=== PATIENT | male | born 1950 | race Hispanic/Latino ===

== ENCOUNTER → 2018-12-05 | Outpatient (CLI) | payer MEDICARE | END | disposition home or self-care (01) | LOC: RAH 12:34 | PROVIDERS: ATTEND Family Medicine | DX: G31.9 Degenerative disease of nervous system, unspecified (principal) | CPT/HCPCS: 70450 ==

== ENCOUNTER → 2019-06-23 | Outpatient (CLI) | payer MEDICARE | END | disposition home or self-care (01) | LOC: SHCH 07:54 | PROVIDERS: ATTEND Internal Medicine Cardiovascular Disease | DX: I10 Essential (primary) hypertension (principal) | CPT/HCPCS: 93306; 93356 ==

== ENCOUNTER → 2019-06-26 | Outpatient (CLI) | payer MEDICARE | END | disposition home or self-care (01) | LOC: SHCH 08:56 | PROVIDERS: ATTEND Internal Medicine Cardiovascular Disease | DX: I25.10 Atherosclerotic heart disease of native coronary artery without angina pectoris (principal) | CPT/HCPCS: 93880 ==

== ENCOUNTER 2019-08-27 21:24 | Inpatient (IN) | payer OTHER, MEDICARE ==
[~2019-08-27] VITALS: Ht 157.5 cm; Wt 83.2 kg
[2019-08-27] MEDS ORDERED: DEXAMETHASONE SOD PHOSPHATE 4 MG/ML 1ML VIAL ONE (22:29)
[2019-08-27] MEDS ORDERED: ENOXAPARIN SODIUM 80 MG/0.8 ML SQ ONE (22:29)
[2019-08-28] MEDS ORDERED: ROCURONIUM BROMIDE 10MG/1ML 5ML VL IV ONE (00:29)
[2019-08-28] MEDS ORDERED: ETOMIDATE 2 MG/ML 10 ML VIAL IVP ONE (00:29)
[2019-08-28] MEDS ORDERED: METHYLPREDNISOLONE SOD SUCC 40MG/ML 1ML ONE ×3 (01:22→22:13)
[2019-08-28] MEDS ORDERED: FAMOTIDINE 20MG TAB 20 MG TAB ONE (01:23)
[2019-08-28] MEDS ORDERED: AZITHROMYCIN 500MG+NS 250ML 250 ML IV ONE (01:23)
[2019-08-28] MEDS ORDERED: CEFTRIAXONE SODIUM 1 GM ONE ×2 (01:23→08:00)
[2019-08-28 02:09] LABS: BILIRUBIN,TOTAL 1.3 mg/dL (0.2-1.0); CREATININE 0.8 mg/dL (0.5-1.5); POTASSIUM 4.4 mmol/L (3.5-5.1); TOTAL PROTEIN, SERUM 6.5 g/dL (6.0-8.3)
[2019-08-28 02:12] LABS: BASOPHILS % (AUTO) 0.2 % (0.0-5.0); LYMPHOCYTES % (AUTO) 4.9 % (21.0-51.0); MEAN CORPUSCULAR HEMOGLOBIN 29.4 pg (27.0-33.0); MEAN CORPUSCULAR HGB CONC 34.4 g/dL (32.0-36.0); MEAN CORPUSCULAR VOLUME 85.3 fL (79-99); MONOCYTES % (AUTO) 9.6 % (3.0-13.0); NEUTROPHILS % (AUTO) 84.7 % (40.0-77.0); PLATELET COUNT (AUTO) 149 K/uL (130-400); RED BLOOD CELL COUNT(AUTO) 5.86 MIL/uL (4.50-6.20); WHITE BLOOD COUNT (AUTO) 5.3 K/uL (4.8-10.8)
[2019-08-28] MEDS ORDERED: ALBUTEROL INHALER 90MCG/INH IH ONE (03:11)
[2019-08-28] MEDS ORDERED: ONDANSETRON HCL 4 MG/2 ML VIAL IVP PRN (03:15)
[2019-08-28] MEDS ORDERED: ACETAMINOPHEN 325 MG TAB PO PRN (03:15)
[2019-08-28] MEDS ORDERED: ALBUTEROL INHALER 90MCG/INH IH PRN (03:15)
[2019-08-28] MEDS ORDERED: GLUCAGON 1MG KIT 1 MG ML IM PRN (03:15)
[2019-08-28] MEDS ORDERED: DEXTROSE 50%-WATER 50 ML DISP.SYRIN IV PRN (03:15)
[2019-08-28 03:19] LABS: CREATINE KINASE, TOTAL 48 U/L (21-232); LACTATE DEHYDROGENASE 360 U/L (81-234); MYOGLOBIN 31 ng/mL (10-92); TRIGLYCERIDES 108 mg/dL (30-200)
[2019-08-28] MEDS ORDERED: IOHEXOL 350 MG/ML 100ML INFUS..BTL IV ONE (04:09)
[2019-08-28] MEDS: ALBUTEROL INHALER 90MCG/INH IH SCH ×5 (06:00→22:00)
[2019-08-28] MEDS: METHYLPREDNISOLONE SOD SUCC 40MG/ML 1ML IVP SCH ×3 (06:00→22:00)
[2019-08-28] MEDS: SODIUM CHLORIDE 0.9% 1000ML 1,000 ML IV SCH ×2 (07:24→17:24)
[2019-08-28] MEDS: INSULIN R PO SS1 SQ SCH ×4 (07:30→21:00)
[2019-08-28] MEDS ORDERED: ENOXAPARIN SODIUM 80 MG/0.8 ML SQ ONE ×2 (07:59→22:13)
[2019-08-28] MEDS ORDERED: FAMOTIDINE/PF 20 MG/2 ML VIAL IV ONE ×2 (08:00→22:14)
[2019-08-28 08:19] LABS: HEMATOCRIT 46.6 % (42-54); LYMPHOCYTES % (AUTO) 6.7 % (21.0-51.0); MEAN CORPUSCULAR HEMOGLOBIN 29.6 pg (27.0-33.0); MEAN CORPUSCULAR HGB CONC 34.3 g/dL (32.0-36.0); MEAN CORPUSCULAR VOLUME 86.1 fL (79-99); MONOCYTES % (AUTO) 3.4 % (3.0-13.0); NEUTROPHILS % (AUTO) 89.3 % (40.0-77.0); PLATELET COUNT (AUTO) 155 K/uL (130-400); RED BLOOD CELL COUNT(AUTO) 5.41 MIL/uL (4.50-6.20); WHITE BLOOD COUNT (AUTO) 3.3 K/uL (4.8-10.8)
[2019-08-28 08:31] LABS: INR 0.94 (0.85-1.15); PROTHROMBIN TIME 10.2 SEC (9.6-11.6)
[2019-08-28 08:43] LABS: ALANINE AMINOTRANSFERASE 33 U/L (12-78); ALBUMIN 2.4 g/dL (3.5-5.0); ASPARTATE AMINOTRANSFERASE 42 U/L (10-37); BILIRUBIN,TOTAL 0.9 mg/dL (0.2-1.0); CARBON DIOXIDE 28 mmol/L (21-32); CHLORIDE 100 mmol/L (101-111); CREATINE KINASE, TOTAL 54 U/L (21-232); CREATININE 0.8 mg/dL (0.5-1.5); GLOMERULAR FILTR. RATE CALC 102 mL/min (>60); GLUCOSE,RANDOM 283 mg/dL (70-105); LACTATE DEHYDROGENASE 320 U/L (81-234); MYOGLOBIN 42 ng/mL (10-92); SODIUM SERUM 136 mmol/L (136-145); TOTAL PROTEIN, SERUM 6.7 g/dL (6.0-8.3); TRIGLYCERIDES 85 mg/dL (30-200); TROPONIN I < 0.04 ng/mL (0.00-0.06); UREA NITROGEN, BLOOD 15 mg/dL (7-18)
[2019-08-28] MEDS: FAMOTIDINE 20MG TAB 20 MG TAB PO SCH ×2 (09:00→21:00)
[2019-08-28] MEDS ORDERED: ENOXAPARIN SODIUM 40 MG/0.4 ML SYRINGE SQ SCH (09:00)
[2019-08-28] MEDS: ENOXAPARIN SODIUM 80 MG/0.8 ML SQ SCH ×2 (09:00→21:00)
[2019-08-28 09:11] LABS: FIBRINOGEN 688 mg/dL (180-350)
[2019-08-28 09:12] LABS: D-DIMER 2252 ng/mL (0-500)
--- NOTE | 2019-08-28 12:44 | NUR ---
family contact information, Kerline Padilla .
[2019-08-28] MEDS ORDERED: INSULIN HUMULIN R 100 UNIT/ML 3ML ONE ×2 (14:16→22:14)
[2019-08-28] MEDS: INSULIN GLARGINE 100 UNITS/ML 10 ML VIAL SQ SCH (21:00)
[2019-08-29] MEDS: AZITHROMYCIN 500MG+NS 250ML 250 ML IV SCH (01:00)
[2019-08-29] MEDS: CEFTRIAXONE SODIUM 1 GM IVP SCH (01:00)
[2019-08-29] MEDS ORDERED: CEFTRIAXONE SODIUM 1 GM ONE (01:17)
[2019-08-29] MEDS ORDERED: AZITHROMYCIN 500MG+NS 250ML 250 ML IV ONE (01:17)
[2019-08-29] MEDS: ALBUTEROL INHALER 90MCG/INH IH SCH ×6 (02:00→22:00)
[2019-08-29] MEDS: SODIUM CHLORIDE 0.9% 1000ML 1,000 ML IV SCH ×3 (03:24→23:24)
[2019-08-29] MEDS: METHYLPREDNISOLONE SOD SUCC 40MG/ML 1ML IVP SCH ×3 (06:00→22:00)
[2019-08-29 06:35] LABS: CREATININE 0.7 mg/dL (0.5-1.5); POTASSIUM 4.2 mmol/L (3.5-5.1)
[2019-08-29 06:44] LABS: HEMATOCRIT 45.9 % (42-54); MEAN CORPUSCULAR HEMOGLOBIN 29.2 pg (27.0-33.0); MEAN CORPUSCULAR HGB CONC 34.2 g/dL (32.0-36.0); MEAN CORPUSCULAR VOLUME 85.3 fL (79-99); RED BLOOD CELL COUNT(AUTO) 5.38 MIL/uL (4.50-6.20); WHITE BLOOD COUNT (AUTO) 10.4 K/uL (4.8-10.8)
[2019-08-29] MEDS: INSULIN R PO SS1 SQ SCH ×4 (07:30→21:00)
[2019-08-29] MEDS ORDERED: ENOXAPARIN SODIUM 80 MG/0.8 ML SQ ONE ×2 (08:31→19:36)
[2019-08-29] MEDS ORDERED: METHYLPREDNISOLONE SOD SUCC 40MG/ML 1ML ONE ×2 (08:32→19:36)
[2019-08-29] MEDS ORDERED: FAMOTIDINE/PF 20 MG/2 ML VIAL IV ONE ×2 (08:32→19:37)
[2019-08-29] MEDS: ENOXAPARIN SODIUM 80 MG/0.8 ML SQ SCH ×2 (09:00→21:00)
[2019-08-29] MEDS: FAMOTIDINE 20MG TAB 20 MG TAB PO SCH ×2 (09:00→21:00)
[2019-08-29] MEDS ORDERED: INSULIN HUMULIN R 100 UNIT/ML 3ML ONE (13:12)
--- NOTE | 2019-08-29 14:35 | NUR ---
CHART CHECK COMPLETED. Pt IS A 69 Y.O. MALE ADMITTED SECONDARY TO COVID PNEUMONIA, HYPOXIA. Pt HAS A PAST MEDICAL HISTORY SIGNIFICANT FOR DM, HTN, PROSTATE ISSUES, CHOLECYSTECTOMY. Pt WITH NO DIET IN PLACE AT THIS TIME. PLEASE REQUEST FORMAL SKILLED SPEECH/SWALLOW EVALUATION IF Pt PRESENTS WITH +S/S OF ASPIRATION SUCH COUGH RESPONSE, WET VOCAL QUALITY OR THROAT CLEAR DURING P.O. Addendum: 08/29/19 at 1437 by ИВАН BAKER, [facility] Amended: Links added.
[2019-08-29] MEDS: INSULIN GLARGINE 100 UNITS/ML 10 ML VIAL SQ SCH (21:00)
[2019-08-30] VITALS (61 sets, daily range): BP systolic 51–211; BP diastolic 31–128
[2019-08-30] MEDS ORDERED: CEFTRIAXONE SODIUM 1 GM ONE (00:03)
[2019-08-30] MEDS ORDERED: AZITHROMYCIN 500MG+NS 250ML 250 ML IV ONE (00:03)
[2019-08-30] MEDS: CEFTRIAXONE SODIUM 1 GM IVP SCH (01:00)
[2019-08-30] MEDS: AZITHROMYCIN 500MG+NS 250ML 250 ML IV SCH (01:00)
[2019-08-30] MEDS: ALBUTEROL INHALER 90MCG/INH IH SCH ×5 (02:00→17:53)
[2019-08-30] MEDS ORDERED: ALBUTEROL INHALER 90MCG/INH IH ONE (02:18)
[2019-08-30] MEDS: METHYLPREDNISOLONE SOD SUCC 40MG/ML 1ML IVP SCH ×2 (06:01→14:14)
[2019-08-30] MEDS: SODIUM CHLORIDE 0.9% 1000ML 1,000 ML IV SCH (06:01)
[2019-08-30] MEDS: INSULIN R PO SS1 SQ SCH ×3 (06:06→17:48)
--- NOTE | 2019-08-30 08:00 | NUR ---
AM SHIFT ASSESSMENT. O2 VIA NRB AT 15L. SATS AT 91% HEAD OF BED UP
[2019-08-30] MEDS ORDERED: PHARMACY COMMUNICATION MISC SCH ×3 (08:45→17:00)
[2019-08-30] MEDS: ENOXAPARIN SODIUM 80 MG/0.8 ML SQ SCH (09:48)
[2019-08-30] MEDS: FAMOTIDINE 20MG TAB 20 MG TAB PO SCH (09:48)
[2019-08-30] MEDS ORDERED: METOPROLOL SUCCINATE 50 MG TAB.SR.24H PO SCH (10:02)
[2019-08-30 10:49] LABS: HEMATOCRIT 46.9 % (42-54); MEAN CORPUSCULAR HEMOGLOBIN 29.3 pg (27.0-33.0); MEAN CORPUSCULAR HGB CONC 34.3 g/dL (32.0-36.0); MEAN CORPUSCULAR VOLUME 85.4 fL (79-99); RED BLOOD CELL COUNT(AUTO) 5.49 MIL/uL (4.50-6.20); WHITE BLOOD COUNT (AUTO) 12.4 K/uL (4.8-10.8)
[2019-08-30 11:10] LABS: ALBUMIN 2.6 g/dL (3.5-5.0); BILIRUBIN,TOTAL 0.9 mg/dL (0.2-1.0); CREATININE 0.8 mg/dL (0.5-1.5); POTASSIUM 3.9 mmol/L (3.5-5.1); TOTAL PROTEIN, SERUM 6.4 g/dL (6.0-8.3)
[2019-08-30] MEDS ORDERED: FUROSEMIDE 10 MG/ML 2ML VIAL IV SCH ×2 (12:15→14:10)
[2019-08-30 12:28] LABS: ABG BASE EXCESS 2.7 mmol/L (-2.0-3.0); ABG HCO3 25.8 mmol/L (21.0-28.0); ABG OXYGEN SATURATION 87.3 % (95.0-99.0); ABG PCO2 35 mmHg (35-48)
--- NOTE | 2019-08-30 12:34 | NUR ---
PLACED ON PRONE POSITION.
--- NOTE | 2019-08-30 12:55 | NUR ---
LASIX 20MG GIVEN NOW. ORDER IN PLACE TO TRANSFER TO ICU, [employer]AC[employer] ENGINEER NOTIFIED.
[2019-08-30] MEDS ORDERED: COMPOUND IV REFRIGERATED 1 EACH IVSOLN MISC PRN (13:45)
[2019-08-30] MEDS ORDERED: REMDESIVIR (EUA) 520 200 MG in SODIUM CHLORIDE 0.9% 250 ML IV ONE (14:00)
--- NOTE | 2019-08-30 14:00 | NUR ---
ORDERS TO TRANSFER PT. TO ICU IN PLACE, REPORT GIVEN TO FRANCESCA MONTANO RN. HE WILL INFORM ME WHEN ROOM IS READY.
--- NOTE | 2019-08-30 14:20 | NUR ---
WALKED IN ROOM TO GIVE SCHEDULED MEDICATIONS AND FOUND PT. ON THE FLOOR, FACE DOWN, HAD PULLED OUT ALL LINES AND WAS HAVING SEVERE RESP DISTRESS. NETO YIP CALLED IMMEDIATELY. PLACED BACK ON BED AND RESUSCITATE MEASURES STARTED IMMEDIATELY.INTUBATED AND TRANSFERRED TO ICU.SEVERAL ATTEMPTS TO CONTACT FAMILY HAVE BEEN AND AND ALL GO TO VOICE MAIL
[2019-08-30 14:54] LABS: BASOPHILS % (AUTO) 0.4 % (0.0-5.0); EOSINOPHILS % (AUTO) 0.7 % (0.0-8.0); HEMATOCRIT 52.3 % (42-54); LYMPHOCYTES % (AUTO) 5.1 % (21.0-51.0); MEAN CORPUSCULAR HEMOGLOBIN 29.8 pg (27.0-33.0); MEAN CORPUSCULAR HGB CONC 32.9 g/dL (32.0-36.0); MEAN CORPUSCULAR VOLUME 90.6 fL (79-99); MONOCYTES % (AUTO) 6.6 % (3.0-13.0); NEUTROPHILS % (AUTO) 84.3 % (40.0-77.0); NUCLEATED RED BLOOD CELLS 0.1 % (0.0-0.19); PLATELET COUNT (AUTO) 247 K/uL (130-400); RED BLOOD CELL COUNT(AUTO) 5.77 MIL/uL (4.50-6.20); RED CELL DISTRIBUTION WIDTH 13.2 % (11.0-15.5); WHITE BLOOD COUNT (AUTO) 15.6 K/uL (4.8-10.8)
[2019-08-30] MEDS ORDERED: MIDAZOLAM 50MG-0.9% NS 50ML 50 ML BAG IV SCH (15:00)
[2019-08-30] MEDS ORDERED: LINEZOLID 600 MG/ISO-OSM 300 ML IV SCH (15:00)
[2019-08-30] MEDS ORDERED: CEFEPIME HCL 2 GM VIAL IVP SCH (15:00)
[2019-08-30] MEDS ORDERED: FENTANYL CITRATE PF 0.05 MG/ML 1,000 MCG in SODIUM CHLORIDE 0.9% 100 ML IVPB SCH (15:00)
[2019-08-30] MEDS ORDERED: SODIUM CHLORIDE 0.9% 1000ML 1,000 ML IV ONE ×2 (15:04→19:48)
[2019-08-30] MEDS ORDERED: SODIUM CHLORIDE 0.9% 500ML 500 ML IV ONE ×3 (15:04→20:31)
[2019-08-30] MEDS ORDERED: FENTANYL 1000MCG+NS 100ML 100 ML ONE (15:11)
[2019-08-30] MEDS ORDERED: FENTANYL 2500MCG+NS 250ML 250 ML IV SCH (15:15)
[2019-08-30] MEDS ORDERED: MIDAZOLAM 50MG-0.9% NS 50ML 50 ML IV SCH (15:15)
[2019-08-30] MEDS ORDERED: SODIUM BICARB 50MEQ 50ML VIAL ONE (15:17)
[2019-08-30 15:32] LABS: CREATININE 1.3 mg/dL (0.5-1.5)
[2019-08-30 15:45] LABS: ALBUMIN 2.7 g/dL (3.5-5.0); BILIRUBIN,TOTAL 1.1 mg/dL (0.2-1.0); TOTAL PROTEIN, SERUM 7.1 g/dL (6.0-8.3)
--- NOTE | 2019-08-30 15:47 | NUR ---
I HAVE BEEN WITH THIS PATIENT SINCE HIS CODE BLUE IN ROOM 418. PT WAS INTUBATED SUCCESSFULLY AFTER BEING SEDATED/PARALYZED VIA A RT INTRAOSSEOUS CATHETER INSERTED BY EAntioneR Addendum: 08/30/19 at 1811 by TORI MONTANO RN RN AT 6117- VESNA COOK ATTEMPTING CENTRAL LINE AND A-LINE. DR RADHA MELENDREZ ALSO
[2019-08-30] MEDS ORDERED: PROPOFOL 1000 MG/100 ML 100 ML IV ONE (16:05)
--- NOTE | 2019-08-30 16:40 | NUR ---
AFTER SEVERAL ATTEMPTS BY MD AND BOX OFFICE ATTENDANT-UNABLE TO ACCES ARTERY. DR GARCIA WAS ABLE TO PLACE A 7F 3LUMEN CENTRAL LINE TO LT SUBCLAVIAN VEIN. PT IS ASYNCHRONOUS WITH VENT. NOW ON FENTANYL 200MCG/HR VERSED 10MG/HR..INTUBATED 7.5F ET AT 23 LIP. VENT SETTINGS AC-24/TV 450/PEEP 10/ FIO2 100%. REFER TO V/S PLEASE
[2019-08-30 16:52] LABS: ABG BASE EXCESS 2.4 mmol/L (-2.0-3.0); ABG HCO3 27.7 mmol/L (21.0-28.0); ABG OXYGEN SATURATION 87.2 % (95.0-99.0); ABG PCO2 45 mmHg (35-48)
[2019-08-30] MEDS ORDERED: PROPOFOL 1000 MG/100 ML IV PRN (17:00)
[2019-08-30] MEDS ORDERED: PROPOFOL 1000 MG/100 ML 100 ML IV SCH (17:15)
[2019-08-30] MEDS ORDERED: ROCURONIUM 10MG/1ML SYR 10 MG/ML ML IV PRN (17:15)
[2019-08-30] MEDS ORDERED: ROCURONIUM 10MG/1ML SYR 10 MG/ML ML IV SCH (18:00)
[2019-08-30] MEDS ORDERED: NOREPINEPHRINE 4MG/NS 250ML 250 ML IV ONE (19:44)
[2019-08-30] MEDS ORDERED: NOREPINEPHRINE 4MG/NS 250ML 250 ML IV SCH (20:00)
[2019-08-30 20:54] LABS: ABG HCO3 21.9 mmol/L (21.0-28.0); ABG OXYGEN SATURATION 96.2 % (95.0-99.0); ABG PCO2 36 mmHg (35-48)
[2019-08-30] MEDS ORDERED: METHYLPREDNISOLONE SOD SUCC 40MG/ML 1ML IVP SCH (21:00)
[2019-08-30] MEDS ORDERED: INSULIN GLARGINE 100 UNITS/ML 10 ML VIAL SQ SCH (21:00)
[2019-08-30] MEDS ORDERED: PHENYLEPHRINE HCL 10 MG/ML 1ML VIAL IV ONE ×2 (22:38→23:31)
[2019-08-30] MEDS ORDERED: SODIUM CHLORIDE 0.9% 100 ML IV ONE (22:40)
[2019-08-30 22:51] LABS: ABG BASE EXCESS -7.1 mmol/L (-2.0-3.0); ABG OXYGEN SATURATION 77.5 % (95.0-99.0); ABG PCO2 36 mmHg (35-48)
[2019-08-30] MEDS ORDERED: NOREPINEPHRINE BITARTRATE 1 MG/1 ML ML IV ONE (22:51)
[2019-08-30] MEDS ORDERED: SODIUM CHLORIDE 0.9% 250 ML IV ONE (22:52)
[2019-08-30 23:53] LABS: HEMATOCRIT 50.6 % (42-54); MEAN CORPUSCULAR HEMOGLOBIN 29.5 pg (27.0-33.0); MEAN CORPUSCULAR HGB CONC 32.6 g/dL (32.0-36.0); MEAN CORPUSCULAR VOLUME 90.4 fL (79-99); NUCLEATED RED BLOOD CELLS 0.3 % (0.0-0.19); PLATELET COUNT (AUTO) 312 K/uL (130-400); RED CELL DISTRIBUTION WIDTH 13.7 % (11.0-15.5); WHITE BLOOD COUNT (AUTO) 25.8 K/uL (4.8-10.8)
[2019-08-30] MEDS ORDERED: AMIODARONE HCL 50 MG/ML 3 ML VIAL ONE (23:57)
[2019-08-31 00:01] VITALS: BP 178/91
[2019-08-31 00:01] LABS: CREATININE 2.4 mg/dL (0.5-1.5); POTASSIUM 3.3 mmol/L (3.5-5.1)
[2019-08-31] MEDS ORDERED: EPINEPHRINE 1 MG/ML AMPULE ONE ×5 (00:01→00:12)
[2019-08-31] MEDS ORDERED: AMIODARONE HCL 50 MG/ML 3 ML VIAL ONE (00:02)
[2019-08-31 00:04] VITALS: BP 120/66
[2019-08-31] MEDS ORDERED: SODIUM CHLORIDE 0.9% 250 ML IV ONE (00:04)
[2019-08-31 00:06] VITALS: BP 109/52
[2019-08-31 00:09] VITALS: BP 66/27
[2019-08-31 00:12] LABS: BAND NEUTROPHILS % (MANUAL) 3 % (0-2); LYMPHOCYTES % (MANUAL) 13 % (22-44); MONOCYTES % (MANUAL) 8 % (2-9); SEGMENTED NEUTROPHILS % 76 % (40-70)
[2019-08-31 00:13] LABS: MAN.DIFF COMMENT-IMPRESSION MANUAL DIFFERENTIAL
[2019-08-31 00:13] LABS: ABG BASE EXCESS -16.3 mmol/L (-2.0-3.0); ABG HCO3 14.3 mmol/L (21.0-28.0); ABG OXYGEN SATURATION 43.2 % (95.0-99.0); ABG PCO2 53 mmHg (35-48)
[2019-08-31 00:15] VITALS: BP 57/35
[2019-08-31] MEDS ORDERED: SODIUM BICARB 50MEQ 50ML VIAL ONE (00:17)
[2019-08-31 00:23] LABS: ALBUMIN 2.2 g/dL (3.5-5.0); BILIRUBIN,TOTAL 2.4 mg/dL (0.2-1.0); TOTAL PROTEIN, SERUM 5.9 g/dL (6.0-8.3)
[2019-08-31 00:24] LABS: TROPONIN I 7.31 ng/mL (0.00-0.06)
[2019-08-31] MEDS ORDERED: SODIUM BICARB 8.4% 50ML SYRING 150 MEQ in DEXTROSE 5%-WATER 1,000 ML IV SCH (00:30)
--- NOTE | 2019-08-31 06:30 | NUR ---
Patient intubated in room with blood pressure trending down, lost pulse at 2235 and code blue initiated. Patient obtained ROSC several times but continued to loose pulse and blood pressure. Dr. Dangelo pronounced patient at 0030. Primary MD and family notified.
[2019-08-31] MEDS ORDERED: METOPROLOL SUCCINATE 50 MG TAB.SR.24H PO SCH (09:00)
[2019-08-31] MEDS ORDERED: FAMOTIDINE/PF 20 MG/2 ML VIAL IV SCH (09:00)
[2019-08-31] MEDS ORDERED: REMDESIVIR (EUA) 520 100 MG in SODIUM CHLORIDE 0.9% 250 ML IV SCH (14:00)
== END 2019-08-31 00:30 | disposition expired | DRG 208 ==
LOC: EDH 21:24 → EDHIP 08-28 00:47 → 4CH 08-30 05:23 → 2CH 08-30 15:23
PROVIDERS: ADMIT Internal Medicine; ATTEND Internal Medicine
PROC: 5A1935Z Respiratory Ventilation, Less than 24 Consecutive Hours (ICD-10-PCS; principal; 2019-08-30)
PROC: 0BH17EZ Insertion of Endotracheal Airway into Trachea, Via Natural or Artificial Opening (ICD-10-PCS; 2019-08-30)
PROC: 02HV33Z Insertion of Infusion Device into Superior Vena Cava, Percutaneous Approach (ICD-10-PCS; 2019-08-30)
PROC: 5A12012 Performance of Cardiac Output, Single, Manual (ICD-10-PCS; 2019-08-30)
PROC: 5A12012 Performance of Cardiac Output, Single, Manual (ICD-10-PCS; 2019-08-31)
DX: U07.1 COVID-19 (principal); J12.89 Other viral pneumonia; J96.01 Acute respiratory failure with hypoxia; I50.33 Acute on chronic diastolic (congestive) heart failure; A41.9 Sepsis, unspecified organism; R65.21 Severe sepsis with septic shock; E87.2 Acidosis; E11.65 Type 2 diabetes mellitus with hyperglycemia; I11.0 Hypertensive heart disease with heart failure; N40.0 Benign prostatic hyperplasia without lower urinary tract symptoms; I46.9 Cardiac arrest, cause unspecified; Z90.49 Acquired absence of other specified parts of digestive tract; Z83.3 Family history of diabetes mellitus
CPT/HCPCS: 31500; 36415; 36600; 71045; 71275; 80048; 80053; 82435; 82550; 82728; 82803; 82947; 82948; 83036; 83605; 83615; 83735; 83874; 84132; 84145; 84295; 84478; 84484; 85018; 85025; 85027; 85378; 85384; 85610; 85730; 86140; 86850; 86900; 86901; 87040; 92950; 93005; 94002; 99291; A4344; G0378; J0171; J0282; J0456; J0692; J0696; J1100; J1650; J1815; J1940; J2020; J2370; J2704; J2920; J3010; J3490; J7030; J7040; J7050; J7070; Q9967